=== PATIENT | female | born 1960 | race Caucasian/White ===

== ENCOUNTER 2017-10-14 07:59 | Emergency (ER) | payer BC ==
[2017-10-14] MEDS ORDERED: Naproxen 500 MG TAB ONE (08:39)
[2017-10-14] MEDS ORDERED: Acetaminophen 500 MG TAB ONE (08:40)
[2017-10-14] MEDS ORDERED: Dexamethasone 4 MG TAB ONE (08:40)
== END 2017-10-14 09:05 | disposition home or self-care (01) ==
LOC: SCSER 07:59
DX: M54.5 Low back pain (principal); F17.210 Nicotine dependence, cigarettes, uncomplicated; E78.5 Hyperlipidemia, unspecified
CPT/HCPCS: 99283; J8540